=== PATIENT | female | born 1935 | race Native Hawaiian/Other Pacific Islander ===

== ENCOUNTER → 2017-02-11 | Outpatient (CLI) | payer MEDICARE, MEDICAID ==
[~2017-02-11] MED LIST: ALLO300 PO; ALLO300T2 PO; AMLO10TA2 PO; AMLO5TAB96 PO; APIX5TAB PO; DICL75TA PO; ENAL20TA PO; ENAL20TA81 PO; FURO20TA PO; GLUCTAB PO; METF500T PO; METO25TA6 PO; PLAV75TA29 PO; ROSU20 PO; TOPR25TA2 PO
[2017-02-11 12:18] LABS: AUTOMATED NEUTROPHIL # 2.7 TH/MM3 (1.8-7.7); BASOPHIL # 0.1 TH/MM3 (0-0.2); EOSINOPHIL # 0.4 TH/MM3 (0-0.4); HEMATOCRIT 39.7 % (35.0-46.0); HEMO FLAGS DIFF FINAL; LYMPH % 37.6 % (9.0-44.0); LYMPHOCYTE # 2.1 TH/MM3 (1.0-4.8); MEAN CORPUSCULAR HEMOGLOBIN 26.6 PG (27.0-34.0); NEUT % 47.4 % (16.0-70.0); PLATELET COUNT 240 TH/MM3 (150-450); RED BLOOD COUNT 4.78 MIL/MM3 (4.00-5.30); RED CELL DISTRIBUTION WIDTH 15.7 % (11.6-17.2); WHITE BLOOD COUNT 5.7 TH/MM3 (4.0-11.0)
[2017-02-11 12:47] LABS: ALKALINE PHOSPHATASE 92 U/L (45-117); ALT (GPT) 18 U/L (10-53); ANION GAP 9 MEQ/L (5-15); AST (GOT) 15 U/L (15-37); BICARBONATE 28.3 MEQ/L (21.0-32.0); BLOOD UREA NITROGEN 17 MG/DL (7-18); CHLORIDE 102 MEQ/L (98-107); GLOMERULAR FILTRATION RATE 57 ML/MIN (>89); GLUCOSE,FASTING 126 MG/DL (74-99); HDL CHOLESTEROL 43.9 MG/DL (40.0-60.0); LDL CHOLESTEROL 61 MG/DL (0-99); POTASSIUM 4.3 MEQ/L (3.5-5.1); SODIUM (NA) 139 MEQ/L (136-145); TOTAL BILIRUBIN ADULT 0.3 MG/DL (0.2-1.0); URIC ACID 4.1 MG/DL (2.6-6.0)
[2017-02-11 15:57] LABS: HEMOGLOBIN Ao 84.4 %; HEMOGLOBIN LA1C 2.1 %; HEMOGLOBIN P3 3.7 %
== END ==
LOC: PLAB 07:39
PROVIDERS: ATTEND Family Medicine
DX: E78.2 Mixed hyperlipidemia (principal); E11.9 Type 2 diabetes mellitus without complications; I10 Essential (primary) hypertension; M12.9 Arthropathy, unspecified; M10.9 Gout, unspecified; Z79.899 Other long term (current) drug therapy
CPT/HCPCS: 36415; 80053; 80061; 82043; 83036; 84550; 85025

== ENCOUNTER → 2017-04-23 | Outpatient (CLI) | payer MEDICARE, MEDICAID ==
[2017-04-23 09:02] LABS: PROTHROMBIN TIME - PATIENT 11.5 SEC (9.8-11.6)
[2017-04-23 09:42] LABS: AUTOMATED NEUTROPHIL # 2.7 TH/MM3 (1.8-7.7); BASOPHIL # 0.1 TH/MM3 (0-0.2); EOSINOPHIL # 0.3 TH/MM3 (0-0.4); HEMATOCRIT 38.1 % (35.0-46.0); HEMO FLAGS DIFF FINAL; LYMPH % 40.4 % (9.0-44.0); LYMPHOCYTE # 2.3 TH/MM3 (1.0-4.8); MEAN CELL VOLUME 82.2 FL (80.0-100.0); MEAN CORPUSCULAR HEMOGLOBIN 25.9 PG (27.0-34.0); MEAN CORPUSCULAR HGB CONC 31.5 % (32.0-36.0); MONO % 6.2 % (0.0-8.0); NEUT % 47.4 % (16.0-70.0); PLATELET COUNT 210 TH/MM3 (150-450); RED BLOOD COUNT 4.63 MIL/MM3 (4.00-5.30); RED CELL DISTRIBUTION WIDTH 16.4 % (11.6-17.2); WHITE BLOOD COUNT 5.7 TH/MM3 (4.0-11.0)
[2017-04-23 09:55] LABS: BICARBONATE 27.2 MEQ/L (21.0-32.0); POTASSIUM 4.4 MEQ/L (3.5-5.1)
--- NOTE | 2017-04-29 09:35 | CATHPROC ---
Funky Android HIS Report Study Information Study Number Scheduled Start Study Start [id number] 04/29/2017 Apr 29 2017 8:01AM Referring Institution Admit Source Facility Department 1 Other [facility] - Student Dean Physician and Clinical Staff Initial Noé Rodgers Mercury Cell CleanerDelia Valencia RN Mercury Cell CleanerSis Barajas RN Other cathlab, cathlab Recorder Cricket Garcia RCIS(BS) Eugene Sequeira RCIS(BS) Procedures Performed Procedure Location (Site) Vessel Name Angiogram LV LV Ventricle Coronary Angiograms LCA Left Coronary Coronary Angiograms RCA Right Coronary Drug Eluting Inflatio LAD Prox Left Coronary PTCA ADD ON'S Wire insertion Fem Art (right) Femoral Art Equipment Time Sales Planning Analyst Description Size Mfg Part Number Used/Scraped [id number] 08:59 [employer] WIRE, ASAHI PROWATER 180CM 180CM Used *[id number] 09:07 JU[employer] CRIT[employer] C[employer] WIRE, ASAHI PROWATER 180CM 180CM Used *[id number] 08:21 [employer] SWAN JOSEPHINE CATHETER FR 7 Used *[id number] TRANSDUCER, TRUWAVE 08:21 [employer] * [id number] Used W/STOCKCOCK TRANSDUCER, TRUWAVE 08:21 [employer] * [id number] Used W/STOCKCOCK [id number] *[id number] [id number] *[id number] [id number] *[id number] [id number] *[id number] [id number] *[id number] [id number] *[id number] 670-060-00 *[id number] 08:21 [employer] PACK, CCL CUSTOM * Used *[id number] 08:21 [employer] PACER PEN, SKIN DUAL W/ RULER * [id number] Used STENT, 3.0 12 RESOLUTE [id number] 09:12 MEDTRONIC 3.0 12 Used INTEGRITY RX *[id number] 08:58 [employer] MEDICAL 30 MAYCOL INDEFLATOR Used *[id number] 08:21 [employer] MEDICAL WIRE, 3MMJ .035 180CM 180CM Used *[id number] 08:21 NAMIC MANIFOLD, 2 PORT * Used *[id number] 08:21 NAMIC MANIFOLD, 4 PORT * Used *[id number] 08:21 NYCOMED OMNIPAQUE, 350 MG, 100ML 100ML [id number] Used 08:36 NYCOMED OMNIPAQUE, 350 MG, 150ML 150ML [id number] Used [id number] 08:21 ALEJANDRE MEDICAL BLANKET,WARM AIR CCL * Used *[id number] 08:22 TERUMO MEDICAL SHEATH, FR6 TERUMO (10CM) FR 6 [id number] Used 08:21 TERUMO MEDICAL SHEATH, FR7 TERUMO (10CM) FR 7 [id number] Used Equipment Model, Serial, Lot Number and Expiration Data Description Model Number Serial Number Lot Number Expiration Date STENT, 3.0 12 RESOLUTE [id number] 09-02-2017 INTEGRITY RX History: Current Medications Medication Dosage/Unit Route Frequency Last Date/Time Taken Beta Zafar Statins (any) History: Allergies Allergy Reaction No Known Allergies History: Risk Factors Family History of Hypertension Dyslipidemia Previous [place] Previous Heart Failure Premature CAD Yes Yes No No Yes Prior Valve Prior PCI Prior PCIDate Prior CABG Surgery No Yes 11/30/2002 No Cerebrovascular Peripheral Artery Chronic Lung On Dialysis Disease Disease Disease No No No No History: Stress Tests Stress or Imaging Studies Performed No History: Other Current Smoker No Labs Hgb (g/dl) Hct (%) WBC (l/cumm) Platelets (thousands) 12.00-18.00 37.00-55.00 4.80-10.80 140.00-450.00 12.0 38.1 5.7 210 Glucose (mg/dl) BUN (mg/dl) Creatinine (mg/dl) BUN:Creatinine (1:x) 60.00-110.00 8.00-20.00 0.10-9.00 10.00-20.00 103 20 0.7 28.6 Na (meq/l) K (meq/l) 138.00-146.00 3.80-5.10 139 4.4 INR (PTT:PT) 0.50-2.00 1 CPK-MB (ng/ML) 0.00-7.00 Not Drawn Medication Medication Total Dose (Bolus/Oral) Medication Total Dosage/Unit 1% XYLOCAINE 20 mL HEPARIN 5000 units PLAVIX 600 mg VERSED 2 mg Medications (Bolus/Oral) Medication Time Given Dosage/Unit Administered By Reason VERSED 04/29/2017 8:22:41 AM 1 mg Sis Cm Patient arrived on 1 mg VERSED given by Sis Cm RN in Right Antecubital via Peripheral IV. Ordered by Noé Banks. VERSED 04/29/2017 8:26:03 AM 1 mg Delia Borges Patient arrived on 1 mg VERSED given by Delia Borges RN in Right Antecubital via Peripheral IV. Ordered by Noé Banks. 1% XYLOCAINE 04/29/2017 8:27:40 AM 20 mL Noé Banks Patient arrived on 20 mL 1% XYLOCAINE given by Noé Banks in Right Groin via Subcutaneous. Order ed by Noé Banks. HEPARIN 04/29/2017 8:58:57 AM 4000 units Delia Borges 4000 units HEPARIN given in lab by Delia Borges RN in Right Antecubital via Peripheral IV. Orde red by Noé Banks. HEPARIN 04/29/2017 9:11:26 AM 500 units Delia Borges 500 units HEPARIN given in lab by Delia Borges RN in Right Antecubital via Peripheral IV. Order ed by Noé Banks. PLAVIX 04/29/2017 9:15:00 AM 600 mg Delia Borges 600 mg PLAVIX given in lab by Delia Borges RN via Oral. Ordered by Noé Banks. HEPARIN 04/29/2017 9:21:12 AM 500 units Delia Borges 500 units HEPARIN given in lab by Delia Borges RN in Right Antecubital via Peripheral IV. Order ed by Noé Banks. Medication (Drip) Medication Time Given Dosage/Unit Concentration/Unit Diluent (ml) Solution IV Solutions 04/29/2017 8:06:29 AM 0 mL (IV) 500 NaCl .9 Patient arrived on IV Solutions in Right Antecubital via Peripheral IV. Pump/Drip Flow = 20 ml/hr usi ng NaCl .9. Ordered by Noé Banks. Initial Case Assessment Cardiovascular HR Rhythm NIBP Chest Pain 88 AFIB 154/77 0 Edema Present Skin color Skin None Normal Warm Dry Circulatory - Right Pulses Dorsalis Pedis Femoral 2 2 Scale (0,1,2,3,4,d) Circulatory - Left Pulses Dorsalis Pedis Femoral 2 2 Scale (0,1,2,3,4,d) Circulatory - Lower Extremities Color Lower Right Color Lower Left Normal Normal Neurological State Oriented to time-place- Alert Moves all extremities person Respiration - General Respiration Rate SpO2 (%) (B/min) 23 98 Chronological Log Time Study Chronological Log 8:06:13 Patient arrived via Bed. 8:06:15 Patient Name, D.O.B, / Armband Verified By R.N. 8:06:16 Consent signed by the physician and the patient and verified by the Student Dean staff. 8:06:18 Pre-op and post- op instructions given; patient acknowledges understanding of instructions. 8:06:21 Patient has been NPO for More than 6Hrs. 8:06:22 Skin Breakdown- 8:06:24 Patient Warmer Placed on the Table. 8:06:27 Ankit Prominences Protected 8:06:28 A # 22 IV was noted in the Antecubital (right). Grade = 0 Patient arrived on IV Solutions in Right Antecubital via Peripheral IV. Pump/Drip Flow = 20 ml/ hr using NaCl .9. Ordered 8:06:29 by Noé Banks. 8:06:31 History and physical on the chart or being dictated. Vitals capture started with the following parameters, Patient=Adult, Interval=5 min, Initial Pr bdckgb=123 mmHg, 8:14:11 Deflation Rate=5 mmHg 8:14:50 HR=85 bpm, ODLN=124/77 mmhg, SpO2=88.0 %, Resp=23 B/min, Pain=0, Rosario=10, Sims=2 Assessment: Initial Case, HR=88 BPM, Rhythm=AFIB, LWQS=990/77 mmhg, Chest Pain=0, Edema=None, Color=Normal, Skin = Warm, Dry Right Pulses: Pedro Ped=2, Femoral=2 Left Pulses: Pedro Ped=2, Femoral=2 8:18:40 Lower Right Extremities: Color=Normal Lower Left Extremities: Color=Normal Neurological: State=Alert, Ox3, TYSON Respiration: Resp=23 B/min, SpO2=98 % 8:19:35 MD arrived. 8:19:51 HR=84 bpm, MBUY=808/81 mmhg, SpO2=99.0 %, Resp=23 B/min, Pain=0, Rosario=10, Sims=2 8:20:31 Bilateral groins prepped with 2% chlorhexidine, and with a 3 min. waiting time. Patient arrived on 1 mg VERSED given by Sis Cm, ANASTASIYA in Right Antecubital via Peripheral IV. Ordered by 8:22:41 Noé Banks. 8:24:32 Pressure channel 1 zeroed. 8:24:52 HR=89 bpm, DBHO=600/79 mmhg, SpO2=99.0 %, Resp=29 B/min Time Out. Correct patient, correct procedure,correct physician, ,power injector loaded with cont rast with surgical team 8:25:29 present. Time Out Concurred by , individual staff in procedure 8:26:02 Case Start Patient arrived on 1 mg VERSED given by Delia Borges RN in Right Antecubital via Periphera l IV. Ordered by 8:26:03 Noé Banks. 8:26:54 Reference ECG taken Patient arrived on 20 mL 1% XYLOCAINE given by Noé Banks in Right Groin via Subcutaneous. Ordered by 8:27:40 Noé Banks. 8:29:55 HR=82 bpm, SDWI=605/72 mmhg, SpO2=99.0 %, Resp=29 B/min, Pain=0, Rosario=10, Sims=2 8:31:24 Access site was Right Femoral Artery. 8:31:36 A SHEATH, FR6 TERUMO (10CM) FR 6 was advanced into the Fem Art (right) using the Percutaneou s technique. 8:34:50 HR=80 bpm, YGPS=480/65 mmhg, SpO2=96.0 %, Resp=13 B/min, Pain=0, Rosario=10, Sims=2 8:35:13 Access site was Right Femoral Vein. 8:35:21 A SHEATH, FR7 TERUMO (10CM) FR 7 was advanced into the Fem Vein (right) using the Percutaneo us technique. A SWAN JOSEPHINE CATHETER FR 7 was advanced over a wire. OMNIPAQUE, 350 MG, 150ML 150ML was used for 8:35:36 injections. Recorded Pressure: RA, HR=83, Condition=Condition 1 8:36:15 (Right Atrium) RA 12/10/8 Recorded Pressure: RV, HR=81, Condition=Condition 1 8:36:30 (Right Ventricle) RV 47/5/10 Recorded Pressure: PCW, HR=80, Condition=Condition 1 8:37:09 (Pulmonary Capillary Wedge) PCW 27/28/20 Recorded Pressure: MPA, HR=80, Condition=Condition 1 8:37:25 (Main Pulmonary Artery) MPA 46/18/32 8:39:51 HR=84 bpm, OQNX=000/73 mmhg, SpO2=95.0 %, Resp=28 B/min, Pain=0, Rosario=10, Sims=2 Thermo CO: CO=4.3 l/m, HR=80 bpm, Condition=Condition 1. Used in calculation. 8:43:42 Equipment: Description and Size=SWAN JOSEPHINE CATHETER FR 7, Type=Bath Probe, CC=0.579 Injectant: Temp=19.0 - 22.0 Celsius, Volume=10.0 ml Thermo CO: CO=4.3 l/m, HR=82 bpm, Condition=Condition 1. Used in calculation. 8:44:04 Equipment: Description and Size=SWAN JOSEPHINE CATHETER FR 7, Type=Bath Probe, CC=0.579 Injectant: Temp=19.0 - 22.0 Celsius, Volume=10.0 ml Thermo CO: CO=3.6 l/m, HR=80 bpm, Condition=Condition 1. Used in calculation. 8:44:38 Equipment: Description and Size=SWAN JOSEPHINE CATHETER FR 7, Type=Bath Probe, CC=0.579 Injectant: Temp=19.0 - 22.0 Celsius, Volume=10.0 ml 8:44:52 HR=84 bpm, LWXE=260/79 mmhg, SpO2=97.0 %, Resp=25 B/min, Pain=0, Rosario=10, Sims=2 Thermo CO: CO=4.1 l/m, HR=83 bpm, Condition=Condition 1. Used in calculation. 8:45:10 Equipment: Description and Size=SWAN JOSEPHINE CATHETER FR 7, Type=Bath Probe, CC=0.579 Injectant: Temp=19.0 - 22.0 Celsius, Volume=10.0 ml Thermo CO: CO=4.2 l/m, HR=82 bpm, Condition=Condition 1. Used in calculation. 8:45:45 Equipment: Description and Size=SWAN JOSEPHINE CATHETER FR 7, Type=Bath Probe, CC=0.579 Injectant: Temp=19.0 - 22.0 Celsius, Volume=10.0 ml 8:46:12 [place] Josephine Catheter Removed A PIGTAIL STR INFINITI CATHETER FR 6 was advanced over a wire. OMNIPAQUE, 350 MG, 150ML 150ML wa s used for 8:47:35 injections. Recorded Pressure: LV, HR=83, Condition=Condition 1 8:48:05 (Left Ventricle) LV 168/6/19 8:48:18 The LV was injected at 10 cc/sec for a total of 30. OMNIPAQUE, 350 MG, 150ML 150ML used. Recorded Pressure: LV, Ao, HR=85, Condition=Condition 1 8:49:35 (Left Ventricle) LV 159/2/11, (Aorta) Ao 149/56/95 8:49:40 Catheter was removed 8:49:53 HR=83 bpm, JPFG=117/68 mmhg, SpO2=96.0 %, Resp=26 B/min, Pain=0, Rosario=10, Sims=2 A JL 4.0 INFINITI CATHETER FR 6 was advanced over a wire. OMNIPAQUE, 350 MG, 150ML 150ML was use d for 8:50:26 injections. Recorded Pressure: Ao, HR=80, Condition=Condition 1 8:51:07 (Aorta) Ao 143/57/94 8:51:17 The LCA was injected and visualized at various angles. OMNIPAQUE, 350 MG, 150ML 150ML used. 8:53:11 Catheter was removed A JR 4.0 INFINITI CATHETER FR 6 was advanced over a wire. OMNIPAQUE, 350 MG, 150ML 150ML was use d for 8:53:13 injections. 8:54:52 HR=80 bpm, QGGR=654/68 mmhg, SpO2=99.0 %, Resp=33 B/min, Pain=0, Rosario=10, Sims=2 8:55:18 Catheter was removed A 3DRC INFINITI CATHETER FR 6 was advanced over a wire. OMNIPAQUE, 350 MG, 150ML 150ML was used for 8:56:05 injections. 8:56:40 The RCA was injected and visualized at various angles. OMNIPAQUE, 350 MG, 150ML 150ML used. 8:57:09 Catheter was removed 8:58:04 OMNIPAQUE, 350 MG, 150ML 150ML and 30 MAYCOL INDEFLATOR added. A XBLAD 3.5 GUIDE CATHETER FR 6 was advanced over a wire. OMNIPAQUE, 350 MG, 150ML 150ML was use d for 8:58:32 injections. 4000 units HEPARIN given in lab by Delia Borges, RN in Right Antecubital via Peripheral IV. Ordered by Darren, 8:58:57 Noé. 8:59:51 HR=80 bpm, HOOX=470/64 mmhg, ZgZ2=371.0 %, Resp=24 B/min, Pain=0, Rosario=10, Sims=2 9:00:39 A WIRE, ASAHI PROWATER 180CM 180CM was inserted via Fem Art (right). 9:03:51 Wire removed 9:04:12 Catheter was removed 9:04:55 HR=86 bpm, CNLW=841/67 mmhg, Resp=26 B/min, Pain=0, Rosario=10, Sims=2 9:07:00 Activated Clotting Time Drawn A JL 4.0 GUIDE CATHETER FR 6 was advanced over a wire. OMNIPAQUE, 350 MG, 150ML 150ML was used f or 9:07:25 injections. 9:07:43 A WIRE, ASAHI PROWATER 180CM 180CM was inserted via Fem Art (right). Recorded Pressure: Ao, HR=84, Condition=Condition 1 9:07:50 (Aorta) Ao 156/62/101 9:09:11 ACT (Normal Range 90-180) = 206 9:09:56 HR=83 bpm, AJTB=564/68 mmhg, SpO2=98.0 %, Resp=22 B/min, Pain=0, Rosario=10, Sims=2 9:11:07 Interventional wire has crossed the lesion 500 units HEPARIN given in lab by Delia Borges, RN in Right Antecubital via Peripheral IV. Ordered by Darren, 9:11:26 Noé. A STENT, 3.0 12 RESOLUTE INTEGRITY RX 3.0 12 was advanced through a JL 4.0 GUIDE CATHETER FR 6 over a WIRE, 9:13:23 ASAHI PROWATER 180CM 180CM. A STENT, 3.0 12 RESOLUTE INTEGRITY RX 3.0 12 was deployed using a 30 MAYCOL INDEFLATOR at 12 atmos pheres for 9:13:24 20 seconds in the LAD Prox. 9:13:49 Delivery device removed 9:13:52 Catheter was removed 9:14:00 An injection in the Fem Art (right) was made through the SHEATH, FR6 TERUMO (10CM) FR 6. 9:14:30 Case End 9:14:55 HR=83 bpm, RJWO=374/70 mmhg, WlE4=140.0 %, Resp=30 B/min, Pain=0, Rosario=10, Sims=2 9:15:00 600 mg PLAVIX given in lab by Delia Borges, RN via Oral. Ordered by Noé Banks. 9:16:17 Activated Clotting Time Drawn 9:19:09 ACT (Normal Range 90-180) = 218 9:19:58 HR=81 bpm, ZHVQ=434/65 mmhg, SpO2=97.0 %, Resp=27 B/min, Pain=0, Rosario=10, Sims=2 500 units HEPARIN given in lab by Delia Borges RN in Right Antecubital via Peripheral IV. Ordered by Darren 9:21:12 Noé. 9:21:24 In the Fem Art (right) the SHEATH, FR6 TERUMO (10CM) FR [address] by Noé Banks. 9:21:27 In the Fem Vein (right) the SHEATH, FR7 TERUMO (10CM) FR [address] by Noé Banks. 9:21:38 Sterile dressing applied to site 9:21:39 No case complications noted. 9:21:40 Cine recording checked. 9:21:44 Implantable Device card placed in patient's chart. 9:21:46 Bedside Report will be given. 9:21:48 Contrast Scanned 9:21:51 A Left and Right Heart Cath was performed. 9:24:00 Activated Clotting Time Drawn 9:24:55 HR=78 bpm, TSSZ=027/71 mmhg, SpO2=97.0 %, Resp=10 B/min, Pain=0, Rosario=10, Sims=2 9:29:38 Vitals capture stopped. 9:30:34 ACT (Normal Range 90-180) = 241 9:31:[address] [facility] - Contrast Media Used In Study Contrast Total Opened (mL) Total Used (mL) Total Wasted (mL) Omnipaque 110 110 0 End Study - Maximum Contrast Load Max Contrast Load (mL) 484.4 End Study - Radiation Exposure Fluoro Time (minutes) 10.1 End Study - Patient Disposition Complications Transferred To Interventional Outcome No Telemetry Bed successful
== END ==
LOC: PLAB 07:19
PROVIDERS: ATTEND Internal Medicine Cardiovascular Disease
DX: I35.0 Nonrheumatic aortic (valve) stenosis (principal)
CPT/HCPCS: 36415; 80048; 85025; 85610

== ENCOUNTER 2017-04-29 06:08 | Day surgery (SDC) | payer MEDICARE, MEDICAID ==
[~2017-04-29] VITALS: Ht 137.2 cm; Wt 67.0 kg
[2017-04-29] VITALS (14 sets, daily range): BP systolic 92–147; BP diastolic 53–80; PULSE 76–89; RESP 16–18; TEMP 98.1–98.6; O2SAT 95–99
[~2017-04-29 06:08] MED LIST changes: -ALLO300T2 PO; -AMLO10TA2 PO; -APIX5TAB PO; -DICL75TA PO; -ENAL20TA PO; -FURO20TA PO; -METF500T PO; -METO25TA6 PO; -PLAV75TA29 PO
[2017-04-29] MEDS ORDERED: NS 1000P @30 MLS/HR (KVO) IV SCH (06:30)
[2017-04-29] MEDS ORDERED: METO25TA6 PO (07:19)
[2017-04-29] MEDS ORDERED: METF500T PO (07:19)
[2017-04-29] MEDS ORDERED: FURO20TA PO (07:19)
[2017-04-29] MEDS ORDERED: ENAL20TA PO (07:19)
[2017-04-29] MEDS ORDERED: APIX5TAB PO (07:19)
[2017-04-29] MEDS ORDERED: ALLO300T2 PO (07:19)
[2017-04-29] MEDS ORDERED: DICL75TA PO (07:19)
[2017-04-29] MEDS ORDERED: AMLO10TA2 PO (07:19)
[2017-04-29] MEDS ORDERED: ROSU20 PO (07:19)
[2017-04-29] MEDS ORDERED: HEPARIN-NS/PF INJ 500 ML ONE (07:50)
[2017-04-29] MEDS ORDERED: MIDAZOLAM HCL 2 MG/2 ML VIAL ONE (08:20)
[2017-04-29] MEDS ORDERED: HEPARIN SODIUM - IV 10,000 UNITS/10 ML VIAL ONE ×2 (08:58→09:19)
[2017-04-29] MEDS: SODIUM CHLOR 0.9% 1000 ML INJ 1,000 ML IV SCH ×2 (09:22→19:22)
[2017-04-29] MEDS ORDERED: CLOPIDOGREL 300 MG TAB ONE (09:29)
[2017-04-29] MEDS ORDERED: SODIUM CHLOR 0.9% 250 ML INJ 250 ML IV PRN (09:30)
[2017-04-29] MEDS ORDERED: SODIUM CHLORIDE 0.9% FLUSH 10 ML FLUSH IV FLUSH PRN (09:30)
[2017-04-29] MEDS ORDERED: ONDANSETRON HCL 4 MG/2 ML VIAL IV PRN (09:30)
[2017-04-29] MEDS ORDERED: METOCLOPRAMIDE HCL 10 MG/2 ML VIAL IV PRN (09:30)
[2017-04-29] MEDS ORDERED: LORazepam 2 MG/ML VIAL IV PRN (09:30)
[2017-04-29] MEDS ORDERED: MISC INFORMATION XX ONE (09:30)
[2017-04-29] MEDS ORDERED: LIDOCAINE HCL 1% 50 ML VIAL INFIL PRN (09:30)
[2017-04-29] MEDS ORDERED: TEMAZEPAM 15 MG CAP PO PRN (09:30)
[2017-04-29] MEDS ORDERED: ATROPINE SULFATE 1 MG/ML VIAL IV PRN (09:30)
[2017-04-29] MEDS ORDERED: PILL SPLITTER OTHER PRN (09:45)
--- NOTE | 2017-04-29 09:48 | MA ---
cc: RAAD MAXWELL MD DATE 04/29/2017 PROCEDURE PERFORMED Catheterization PROCEDURAL STATEMENT The patient was prepped and draped in the usual fashion. 6 sheaths were inserted into the right femoral artery and right femoral vein. Right heart catheterization was done with a flow-directed catheter with thermodilution cardiac output method. Coronary angiography was done with Sandy preformed catheters. Left ventriculography was done with a pigtail catheter. RESULTS 1. Right atrial pressure was 12. 2. Right ventricular pressure was 47/5 with a wedge pressure of 14. 3. Left ventricular pressure was 159/11. 4. Pulmonary artery pressure was 46/18. 5. Aortic pressure is 156/62. There was no significant gradient across the aortic valve. LEFT VENTRICULOGRAPHY Left ventricle contracted normally. Left ventricular ejection fraction was estimated 55%. Calcification of the mitral annulus and aortic valve were seen. No significant mitral regurgitation was observed. CORONARY ANGIOGRAPHY The left main coronary was very short, but normal. The left anterior descending artery demonstrated 90% stenosis in its proximal portion. The midportion of the artery demonstrated mild stenosis of 30-40%. The distal portion of the artery was free from disease. The left circumflex artery was a large dominant artery, but there were mild luminal irregularities, but no significant stenoses were noted. The right coronary artery was anatomically nondominant and free from disease. The decision was made to angioplasty the high-grade stenosis of the LAD. An XB LAD 3.5 guide was used, but multiple attempts to wire the artery were unsuccessful because of guide set up. The guide was replaced with a Sandy L4 guide and Prowater wire was advanced into the distal left anterior descending artery. Primary stenting with 30 x 12-mm drug-eluting stent was then done with post-dilatation to 12 atmospheres. It was a very good cosmetic result. PLACIDO-III flow was present both pre and post procedure residual stenosis was essentially zero. The equipment was withdrawn. The sheaths were sutured in place. The patient left the lab in good condition. CONCLUSIONS 1. Successful PTCA and stenting of the proximal LAD lesion. 2. No significant aortic stenosis. 3. Mild pulmonary hypertension. 4. Normal left ventricular function. MD MARIA DEL CARMEN Loaiza/OBI /9:29 AM /9:39 AM
[2017-04-29] MEDS ORDERED: BACITRACIN OINT 0.9 GM PKT TOP ONE (10:00)
[2017-04-29] MEDS ORDERED: ATROPINE SULFATE 1 MG/10 ML SYRINGE ONE (12:12)
[2017-04-29] MEDS: ASPIRIN 81 MG CHEW TAB PO SCH (12:39)
[2017-04-29] MEDS: METOPROLOL TARTRATE 25 MG TAB PO SCH ×2 (12:39→21:00)
[2017-04-29] MEDS: LISINOPRIL 5 MG TAB PO SCH (12:39)
[2017-04-29] MEDS ORDERED: IOHEXOL 350 MG/ML 50 ML BTL (for Cath Lab) OTHER ONE (13:44)
[2017-04-29] MEDS ORDERED: IOHEXOL 350 MG/ML 100 ML BTL (for Cath Lab) OTHER ONE (13:44)
[2017-04-29] MEDS ORDERED: ATORVASTATIN 10 MG TAB PO SCH (21:00)
[2017-04-29] MEDS: SODIUM CHLORIDE 0.9% FLUSH 10 ML FLUSH IV FLUSH SCH (21:00)
[2017-04-30 06:54] LABS: AUTOMATED NEUTROPHIL # 3.3 TH/MM3 (1.8-7.7); BASOPHIL # 0.1 TH/MM3 (0-0.2); BASOPHIL % 0.9 % (0.0-2.0); EOSINOPHIL # 0.2 TH/MM3 (0-0.4); HEMATOCRIT 38.7 % (35.0-46.0); HEMO FLAGS DIFF FINAL; LYMPH % 31.7 % (9.0-44.0); LYMPHOCYTE # 1.9 TH/MM3 (1.0-4.8); MEAN CELL VOLUME 81.8 FL (80.0-100.0); MEAN CORPUSCULAR HEMOGLOBIN 26.1 PG (27.0-34.0); MEAN CORPUSCULAR HGB CONC 31.9 % (32.0-36.0); MONO % 7.1 % (0.0-8.0); NEUT % 56.3 % (16.0-70.0); PLATELET COUNT 247 TH/MM3 (150-450); RED BLOOD COUNT 4.73 MIL/MM3 (4.00-5.30); WHITE BLOOD COUNT 5.9 TH/MM3 (4.0-11.0)
[2017-04-30 07:04] LABS: BICARBONATE 27.4 MEQ/L (21.0-32.0); POTASSIUM 4.3 MEQ/L (3.5-5.1)
[2017-04-30 07:07] LABS: HDL CHOLESTEROL 40.1 MG/DL (40.0-60.0)
[2017-04-30] MEDS ORDERED: PLAV75TA29 PO (07:50)
--- NOTE | 2017-04-30 07:52 | HHI.DS ---
Discharge Summary Admission Date Admitting Diagnosis CBC/BMP: 04/30/17 0440 04/30/17 0440 Significant Findings Laboratory Tests Test 04/30/17 04:40 Mean Corpuscular Hemoglobin 26.1 PG (27.0-34.0) Mean Corpuscular Hemoglobin 31.9 % Concent (32.0-36.0) Estimat Glomerular Filtration 80 ML/MIN (>89) Rate Random Glucose 118 MG/DL (74-106) Hospital Course s/p PCI CHALINO LAD Pt Condition on Discharge: Good Discharge Disposition: Discharge Home Discharge Instructions DIET: Follow Instructions for: Heart Healthy Diet Activities you can perform: See Additionl Instruction Other Activity Instructions: rest today and back to regular activities tomorrow New Medications: Clopidogrel (Plavix) 75 Mg Tab 75 MG PO DAILY Angina #31 Ref 6 TAB Continued Medications: Allopurinol (Zyloprim) 300 Mg Tab 300 MG PO DAILY Ref 0 Amlodipine (Amlodipine) 10 Mg Tab 10 MG PO DAILY Blood Pressure Management #30 Ref 0 TAB Apixaban (Eliquis) 5 Mg Tab 5 MG PO BID Blood Clot Prevention #60 Ref [address] (Diclofenac Sodium DR) 75 Mg Tabdr 75 MG PO DAILY #30 Ref 0 TAB Enalapril (Enalapril) 20 Mg Tab 20 MG PO DAILY #30 Ref 0 TAB Furosemide (Furosemide) 20 Mg Tab 20 MG PO DAILY #30 Ref 0 TAB Metoprolol Succinate (Toprol Xl) 25 Mg Tabcr 25 MG PO DAILY Ref 0 Rosuvastatin (Crestor) 20 Mg Tab 20 MG PO DAILY Cholesterol Management #30 Ref 0 TAB Discontinued Medications: Allopurinol (Allopurinol) 300 Mg Tab 300 MG PO DAILY Gout #30 Ref 0 TAB Amlodipine Besylate (Norvasc) 5 Mg Tab 5 MG PO DAILY Ref 0 Enalapril Maleate (Vasotec) 20 Mg Tab 20 MG PO BID Ref 0 Metformin (Metformin) 500 Mg Tab 500 MG PO BIDPC With meals Blood Sugar Management #60 Ref 0 TAB Metformin XR 24 HR (Glucophage XR 24 HR) 500 Mg Tab 500 MG PO BID Ref 0 Metoprolol Succinate ER 24 HR (Metoprolol Succinate ER 24 HR) 25 Mg Tab 25 MG PO DAILY #30 Ref 0 TAB Rosuvastatin Calcium (Crestor) 20 Mg Tab 20 MG PO HS TAB David Lynn Apr 30, 2017 07:51
[2017-04-30] MEDS: LISINOPRIL 5 MG TAB PO SCH (08:48)
[2017-04-30] MEDS: METOPROLOL TARTRATE 25 MG TAB PO SCH (08:48)
[2017-04-30] MEDS: ASPIRIN 81 MG CHEW TAB PO SCH (08:48)
[2017-04-30] MEDS: SODIUM CHLORIDE 0.9% FLUSH 10 ML FLUSH IV FLUSH SCH (08:53)
[2017-04-30] MEDS ORDERED: CLOPIDOGREL 75 MG TAB PO SCH (09:00)
--- NOTE | 2017-04-30 11:24 | EKG ---
Date Performed: 04/30/2017 Time Performed: 05:18:26 PTAGE: 81 years EKG: Sinus rhythm Rightward axis Right bundle branch block Inferior T wave changes are nonspecific Abnormal ECG PREVIOUS TRACING : 03/21/2009 08.33 Compared to the previous tracing, right bundle branch block is new DOCTOR: George Schwarz Interpretating Date/Time 04/30/2017 11:24:11
== END 2017-04-30 09:05 | disposition home or self-care (01) ==
LOC: HCAT 06:08 → HDIC 06:09 → HCIS 11:31 → HCAT 04-30 09:05
PROVIDERS: ATTEND Internal Medicine Cardiovascular Disease
DX: I25.10 Atherosclerotic heart disease of native coronary artery without angina pectoris (principal); I35.0 Nonrheumatic aortic (valve) stenosis; I27.2 Other secondary pulmonary hypertension; I48.91 Unspecified atrial fibrillation; I11.0 Hypertensive heart disease with heart failure; I50.9 Heart failure, unspecified; M50.30 Other cervical disc degeneration, unspecified cervical region; M19.90 Unspecified osteoarthritis, unspecified site; E11.65 Type 2 diabetes mellitus with hyperglycemia; M10.9 Gout, unspecified; E78.5 Hyperlipidemia, unspecified; E66.9 Obesity, unspecified; Z68.35 Body mass index [BMI] 35.0-35.9, adult; Z79.01 Long term (current) use of anticoagulants; Z79.84 Long term (current) use of oral hypoglycemic drugs; Z95.5 Presence of coronary angioplasty implant and graft
CPT/HCPCS: 80048; 80061; 82550; 85002; 85025; 92928; 93005; 93460; C1769; C1874; C1887; C1893; J0461; J1644; J2250; J7030; Q9967

== ENCOUNTER → 2017-06-09 | Outpatient (CLI) | payer MEDICARE, MEDICAID ==
[~2017-06-09] MED LIST changes: +AMLO10TA2 PO; -AMLO5TAB96 PO; +APIX5TAB PO; +DICL75TA PO; +ENAL20TA PO; -ENAL20TA81 PO; +FURO20TA PO; -GLUCTAB PO; +PLAV75TA29 PO
[2017-06-09 09:46] LABS: BASOPHIL # 0.1 TH/MM3 (0-0.2); BASOPHIL % 2.3 % (0.0-2.0); EOSINOPHIL # 0.3 TH/MM3 (0-0.4); EOSINOPHIL % 6.1 % (0.0-4.0); HEMATOCRIT 40.4 % (35.0-46.0); HEMO FLAGS DIFF FINAL; LYMPH % 40.9 % (9.0-44.0); LYMPHOCYTE # 1.9 TH/MM3 (1.0-4.8); MEAN CELL VOLUME 81.9 FL (80.0-100.0); MEAN CORPUSCULAR HEMOGLOBIN 25.3 PG (27.0-34.0); MEAN CORPUSCULAR HGB CONC 30.9 % (32.0-36.0); MONO % 7.4 % (0.0-8.0); NEUT % 43.3 % (16.0-70.0); PLATELET COUNT 205 TH/MM3 (150-450); RED BLOOD COUNT 4.93 MIL/MM3 (4.00-5.30); RED CELL DISTRIBUTION WIDTH 17.3 % (11.6-17.2); WHITE BLOOD COUNT 4.5 TH/MM3 (4.0-11.0)
[2017-06-09 09:58] LABS: ALT (GPT) 20 U/L (10-53)
[2017-06-09 10:01] LABS: ALKALINE PHOSPHATASE 92 U/L (45-117); ANION GAP 7 MEQ/L (5-15); AST (GOT) 21 U/L (15-37); BICARBONATE 27.1 MEQ/L (21.0-32.0); BLOOD UREA NITROGEN 20 MG/DL (7-18); CHLORIDE 105 MEQ/L (98-107); GLOMERULAR FILTRATION RATE 59 ML/MIN (>89); GLUCOSE,FASTING 124 MG/DL (74-99); HDL CHOLESTEROL 41.4 MG/DL (40.0-60.0); LDL CHOLESTEROL 84 MG/DL (0-99); POTASSIUM 5.2 MEQ/L (3.5-5.1); SODIUM (NA) 139 MEQ/L (136-145); TOTAL BILIRUBIN ADULT 0.2 MG/DL (0.2-1.0)
[2017-06-09 18:46] LABS: HEMOGLOBIN A1a 1.6 %; HEMOGLOBIN A1b 2.1 %; HEMOGLOBIN Ao 82.9 %; HEMOGLOBIN LA1C 2.2 %; HEMOGLOBIN P3 5.5 %
[2017-06-09 22:03] LABS: MICRO ALBUMIN RANDOM URINE RAW 86.6 MG/L (0.0-30.0)
== END ==
LOC: PLAB 07:27
PROVIDERS: ATTEND Family Medicine
DX: E78.2 Mixed hyperlipidemia (principal); E11.9 Type 2 diabetes mellitus without complications; I10 Essential (primary) hypertension; Z79.899 Other long term (current) drug therapy
CPT/HCPCS: 36415; 80053; 80061; 82043; 83036; 85025

== ENCOUNTER → 2017-10-13 | Outpatient (CLI) | payer MEDICARE, MEDICAID ==
[2017-10-13 13:29] LABS: MICRO ALBUMIN RANDOM URINE RAW 96.6 MG/L (0.0-30.0)
[2017-10-13 13:40] LABS: AST (GOT) 13 U/L (15-37)
[2017-10-13 13:46] LABS: ALT (GPT) 20 U/L (10-53); GLUCOSE,FASTING 150 MG/DL (74-99)
[2017-10-13 13:50] LABS: ALKALINE PHOSPHATASE 83 U/L (45-117); HDL CHOLESTEROL 43.3 MG/DL (40.0-60.0); INDIRECT BILIRUBIN 0.2 MG/DL (0.0-0.8); LDL CHOLESTEROL 119 MG/DL (0-99); TOTAL BILIRUBIN ADULT 0.3 MG/DL (0.2-1.0)
[2017-10-13 17:58] LABS: HEMOGLOBIN A1a 1.1 %; HEMOGLOBIN A1b 2.2 %; HEMOGLOBIN Ao 83.3 %; HEMOGLOBIN LA1C 2.4 %; HEMOGLOBIN P3 4.2 %
== END ==
LOC: PLAB 08:19
PROVIDERS: ATTEND Family Medicine
DX: E11.9 Type 2 diabetes mellitus without complications (principal); E78.2 Mixed hyperlipidemia; Z79.899 Other long term (current) drug therapy
CPT/HCPCS: 36415; 80061; 80076; 82043; 82947; 83036

== ENCOUNTER → 2018-01-05 | Outpatient (CLI) | payer MEDICARE, MEDICAID ==
[2018-01-05 09:37] LABS: AUTOMATED NEUTROPHIL # 2.5 TH/MM3 (1.8-7.7); BASOPHIL # 0.1 TH/MM3 (0-0.2); BASOPHIL % 1.1 % (0.0-2.0); EOSINOPHIL # 0.4 TH/MM3 (0-0.4); EOSINOPHIL % 7.9 % (0.0-4.0); HEMATOCRIT 38.2 % (35.0-46.0); HEMOGLOBIN 12.5 GM/DL (11.6-15.3); LYMPH % 36.5 % (9.0-44.0); LYMPHOCYTE # 1.9 TH/MM3 (1.0-4.8); MEAN CELL VOLUME 83.5 FL (80.0-100.0); MEAN CORPUSCULAR HEMOGLOBIN 27.3 PG (27.0-34.0); MEAN CORPUSCULAR HGB CONC 32.7 % (32.0-36.0); MEAN PLATELET VOLUME 8.8 FL (7.0-11.0); MONO % 5.9 % (0.0-8.0); MONOCYTE # 0.3 TH/MM3 (0-0.9); NEUT % 48.6 % (16.0-70.0); PLATELET COUNT 222 TH/MM3 (150-450); RED BLOOD COUNT 4.58 MIL/MM3 (4.00-5.30); RED CELL DISTRIBUTION WIDTH 17.4 % (11.6-17.2); WHITE BLOOD COUNT 5.1 TH/MM3 (4.0-11.0)
[2018-01-05 10:06] LABS: ALBUMIN 3.1 GM/DL (3.4-5.0); AST (GOT) 16 U/L (15-37); BICARBONATE 27.7 MEQ/L (21.0-32.0); BLOOD UREA NITROGEN 23 MG/DL (7-18); CHLORIDE 105 MEQ/L (98-107); CHOLESTEROL 151 MG/DL (120-200); CREATININE 0.78 MG/DL (0.50-1.00); GLOMERULAR FILTRATION RATE 70 ML/MIN (>89); GLUCOSE,FASTING 113 MG/DL (74-99); SODIUM (NA) 139 MEQ/L (136-145)
[2018-01-05 10:12] LABS: ALKALINE PHOSPHATASE 81 U/L (45-117); ALT (GPT) 14 U/L (10-53); CHOLESTEROL/ HDL RATIO 3.58 RATIO; HDL CHOLESTEROL 42.1 MG/DL (40.0-60.0); LDL CHOLESTEROL 75 MG/DL (0-99); TOTAL BILIRUBIN ADULT 0.2 MG/DL (0.2-1.0); TOTAL PROTEIN 7.8 GM/DL (6.4-8.2); TRIGLYCERIDES 172 MG/DL (42-150)
[2018-01-05 16:34] LABS: HEMOGLOBIN A1C 6.4 % (4.3-6.0)
== END ==
LOC: PLAB 07:53
PROVIDERS: ATTEND Family Medicine
DX: E11.9 Type 2 diabetes mellitus without complications (principal); E78.2 Mixed hyperlipidemia; I10 Essential (primary) hypertension; Z79.899 Other long term (current) drug therapy
CPT/HCPCS: 36415; 80053; 80061; 82043; 83036; 85025

== ENCOUNTER → 2018-05-25 | Outpatient (CLI) | payer MEDICARE, MEDICAID ==
[2018-05-25 10:37] LABS: AUTOMATED NEUTROPHIL # 4.1 TH/MM3 (1.8-7.7); BASOPHIL # 0.1 TH/MM3 (0-0.2); BASOPHIL % 1.4 % (0.0-2.0); EOSINOPHIL # 0.4 TH/MM3 (0-0.4); EOSINOPHIL % 6.4 % (0.0-4.0); HEMATOCRIT 38.7 % (35.0-46.0); HEMOGLOBIN 12.3 GM/DL (11.6-15.3); LYMPH % 23.9 % (9.0-44.0); LYMPHOCYTE # 1.6 TH/MM3 (1.0-4.8); MEAN CELL VOLUME 83.5 FL (80.0-100.0); MEAN CORPUSCULAR HEMOGLOBIN 26.5 PG (27.0-34.0); MEAN CORPUSCULAR HGB CONC 31.7 % (32.0-36.0); MEAN PLATELET VOLUME 8.5 FL (7.0-11.0); MONO % 6.1 % (0.0-8.0); MONOCYTE # 0.4 TH/MM3 (0-0.9); NEUT % 62.2 % (16.0-70.0); PLATELET COUNT 233 TH/MM3 (150-450); RED BLOOD COUNT 4.63 MIL/MM3 (4.00-5.30); RED CELL DISTRIBUTION WIDTH 17.5 % (11.6-17.2); WHITE BLOOD COUNT 6.6 TH/MM3 (4.0-11.0)
[2018-05-25 10:48] LABS: ALBUMIN 3.2 GM/DL (3.4-5.0); AST (GOT) 13 U/L (15-37); BICARBONATE 28.1 MEQ/L (21.0-32.0); BLOOD UREA NITROGEN 14 MG/DL (7-18); CALCIUM 8.9 MG/DL (8.5-10.1); CHLORIDE 105 MEQ/L (98-107); CHOLESTEROL 217 MG/DL (120-200); CREATININE 0.86 MG/DL (0.50-1.00); GLOMERULAR FILTRATION RATE 63 ML/MIN (>89); GLUCOSE,FASTING 137 MG/DL (74-99); SODIUM (NA) 141 MEQ/L (136-145); TRIGLYCERIDES 116 MG/DL (42-150)
[2018-05-25 10:52] LABS: ALKALINE PHOSPHATASE 105 U/L (45-117); ALT (GPT) 14 U/L (10-53); CHOLESTEROL/ HDL RATIO 5.19 RATIO; HDL CHOLESTEROL 41.8 MG/DL (40.0-60.0); LDL CHOLESTEROL 152 MG/DL (0-99); TOTAL BILIRUBIN ADULT 0.4 MG/DL (0.2-1.0); TOTAL PROTEIN 8.3 GM/DL (6.4-8.2)
[2018-05-25 13:43] LABS: HEMOGLOBIN A1C 6.6 % (4.3-6.0)
== END ==
LOC: PLAB 07:53
PROVIDERS: ATTEND Family Medicine
DX: E78.2 Mixed hyperlipidemia (principal); E71.40 Disorder of carnitine metabolism, unspecified; Z79.899 Other long term (current) drug therapy
CPT/HCPCS: 36415; 80053; 80061; 82043; 83036; 85025